=== PATIENT | male | born 1960 | race African-American/Black ===

== ENCOUNTER → 2017-08-12 | Outpatient (CLI) | payer MEDICARE, MEDICAID ==
[~2017-08-12] VITALS: Ht 177.8 cm; Wt 59.1 kg
[~2017-08-12] MED LIST: ARGINAID PO; CIPRO 500MG TA500 MG PO; CIPRO500 MG PO; FENTANYL 100MCG TD; FERROUSAL325 MG PO; INSULIN 70/3100 U/ML SC; LASIX 20MG TABL20 MG PO; LEVSIN 0.10.125 MG/T PO; LOMOTIL 0.025 M1 TAB PO; MULTIPLE VITAMI1 CAP PO; NEURONTIN600 MG/TAB PO; NOVOLOG MIX 70/10 ML SC; PHENERGAN 25 TA25 MG PO; PRADAXA 150MG150 MG PO; ROCEPHIN VIA1 G/VIAL IV; ROXICODONE 55 MG/TAB PO; ROXICODONE15 MG PO; TRESIBA FL100 UNIT/1 SQ; TYLENOL 325MG325 MG PO; VANCOMYCIN 11 G/VIA1 IV; ZOFRAN 4MG T4 MG/TAB PO
[2017-08-12 12:38] VITALS: BP 79/51; PULSE 104
[2017-08-12 13:45] VITALS: BP 87/53; PULSE 105
== END ==
LOC: COL.RAD 11:47
DX: C79.89 Secondary malignant neoplasm of other specified sites (principal); Z92.3 Personal history of irradiation; Z92.21 Personal history of antineoplastic chemotherapy; Z86.711 Personal history of pulmonary embolism; F17.200 Nicotine dependence, unspecified, uncomplicated; Z80.0 Family history of malignant neoplasm of digestive organs; Z79.899 Other long term (current) drug therapy; Z79.01 Long term (current) use of anticoagulants
CPT/HCPCS: 25581